=== PATIENT | female | born 1960 | race Caucasian/White ===

== ENCOUNTER → 2022-04-18 | Outpatient (CLI) | payer OTHER ==
[~2022-04-18] MED LIST: INSULANT SC
== END ==
LOC: M LABSMTC 10:08
PROVIDERS: ATTEND Anesthesiology
DX: Z01.812 Encounter for preprocedural laboratory examination (principal)

== ENCOUNTER 2022-04-19 07:28 | Day surgery (SDC) | payer OTHER ==
[~2022-04-19] VITALS: Ht 157.5 cm; Wt 52.2 kg
[~2022-04-19 07:28] MED LIST changes: +NS 1,000 ML IV ONE
[2022-04-19] MEDS ORDERED: propofoL 200 MG/20 ML VIAL As Ordered ONE ×2 (09:11→09:21)
[2022-04-19 10:15] VITALS: BP 134/76
== END 2022-04-19 10:16 | disposition home or self-care (01) ==
LOC: M OPP 07:28
PROVIDERS: ATTEND Internal Medicine Gastroenterology
DX: Z12.11 Encounter for screening for malignant neoplasm of colon (principal); K64.8 Other hemorrhoids; Z79.4 Long term (current) use of insulin